=== PATIENT | male | born 1995 | race Caucasian/White ===

== ENCOUNTER 2022-09-26 08:06 | Emergency (ER) | payer OTHER ==
[~2022-09-26] VITALS: Ht 175.3 cm; Wt 113.0 kg
[2022-09-26 08:21] VITALS: BP 155/90
--- NOTE | 2022-09-26 08:24 | NUR ---
COVID, FLU SWABS DONE.
[2022-09-26] MEDS ORDERED: ALBU6.7H6 IH (08:47)
[2022-09-26] MEDS ORDERED: GUAI237L76 PO (08:47)
--- NOTE | 2022-09-26 09:19 | NUR ---
Patient discharged with v/s stable. Written and verbal after care instructions given and explained. Patient alert, oriented and verbalized understanding of instructions. Ambulatory with steady gait. All questions addressed prior to discharge. ID band removed. Patient advised to follow up with PMD. Rx of ROBITUSSIN, ALBUTEROL given. Patient educated on indication of medication including possible reaction and side effects. Opportunity to ask questions provided and answered.
== END 2022-09-26 09:19 | disposition home or self-care (01) ==
LOC: MED 08:06
DX: B34.9 Viral infection, unspecified (principal); Z20.822 Contact with and (suspected) exposure to COVID-19
CPT/HCPCS: 99283